=== PATIENT | female | born 1980 | race Caucasian/White ===

== ENCOUNTER 2017-03-03 21:52 | Emergency (ER) | payer MEDICAID ==
[~2017-03-03 21:52] MED LIST: COLACE100 MG PO; MOTRIN600 MG PO; NOR10T PO
[2017-03-04 01:18] VITALS: BP 118/69
== END 2017-03-04 01:18 | disposition home or self-care (01) ==
LOC: ED 21:52
DX: S93.401A Sprain of unspecified ligament of right ankle, initial encounter (principal); S96.911A Strain of unspecified muscle and tendon at ankle and foot level, right foot, initial encounter; G43.909 Migraine, unspecified, not intractable, without status migrainosus; M79.1 Myalgia; M54.30 Sciatica, unspecified side; Z90.49 Acquired absence of other specified parts of digestive tract; X50.1XXA Overexertion from prolonged static or awkward postures, initial encounter; Y93.89 Activity, other specified; Y99.8 Other external cause status; Y92.89 Other specified places as the place of occurrence of the external cause

== ENCOUNTER 2020-03-05 06:16 | Emergency (ER) | payer MEDICAID ==
[~2020-03-05] VITALS: Ht 165.1 cm; Wt 81.2 kg
[2020-03-05 06:29] VITALS: Ht 165.1 cm; Wt 81.2 kg
[2020-03-05 08:17] LABS: BASOPHIL % 0.2 % (0-2); PLATELET COUNT 272 x10^3mcL (130-400); RED CELL DISTRIBUTION WIDTH 13.1 % (11.5-14.5)
[2020-03-05 08:38] LABS: CALCIUM 8.8 mg/dL (8.5-10.1); CARBON DIOXIDE 22.6 mmol/L (21-32); CHLORIDE SERUM 103 mmol/L (98-107); CREATININE SERUM 0.8 mg/dL (0.6-1.0); GFR1 > 60 mL/min; GLUCOSE SERUM 107 mg/dL (74-106); POTASSIUM SERUM 4.5 mmol/L (3.5-5.1); SODIUM SERUM 135 mmol/L (136-145)
[2020-03-05 08:42] LABS: ALBUMIN 3.6 g/dL (3.4-5.0); ALKALINE PHOSPHATASE 67 U/L (46-116); ALT/SGPT 37 U/L (14-59); AST/SGOT 17 U/L (15-37); BILIRUBIN TOTAL 0.2 mg/dL (0.20-1.00); CHOLESTEROL 189 mg/dL (<200); PHOSPHOROUS 3.8 mg/dL (2.5-4.9); TOTAL PROTEIN, SERUM 7.3 g/dL (6.4-8.2); URIC ACID 3.9 mg/dL (2.6-6.0)
[2020-03-05 08:48] LABS: HDL CHOLESTEROL 34 mg/dL (40-60)
[2020-03-05 09:34] VITALS: BP 102/58
== END 2020-03-05 09:34 | disposition home or self-care (01) ==
LOC: ED 06:16
PROVIDERS: Emergency Medicine
DX: R55 Syncope and collapse (principal); R20.2 Paresthesia of skin; R42 Dizziness and giddiness; M79.7 Fibromyalgia; G43.909 Migraine, unspecified, not intractable, without status migrainosus

== ENCOUNTER 2020-09-19 02:35 | Emergency (ER) | payer MEDICAID ==
[~2020-09-19] VITALS: Ht 165.1 cm; Wt 77.1 kg
[2020-09-19 02:55] VITALS: Ht 165.1 cm; Wt 77.1 kg
[2020-09-19 04:05] LABS: BASOPHIL % 0.3 % (0.2-1.3); RED CELL DISTRIBUTION WIDTH 13.2 % (12.3-17.7)
[2020-09-19 04:07] LABS: PLATELET COUNT 302 x10^3mcL (179-408)
[2020-09-19 04:17] LABS: CREATININE SERUM 1.2 mg/dL (0.6-1.0); POTASSIUM SERUM 3.9 mmol/L (3.5-5.1)
[2020-09-19 04:30] LABS: ALBUMIN 3.5 g/dL (3.4-5.0); BILIRUBIN TOTAL 0.3 mg/dL (0.20-1.00); MAGNESIUM 1.8 mg/dL (1.8-2.4); TOTAL PROTEIN, SERUM 7.3 g/dL (6.4-8.2)
[2020-09-19 06:28] VITALS: BP 109/76
== END 2020-09-19 06:28 | disposition home or self-care (01) ==
LOC: ED 02:35
PROVIDERS: Student in an Organized Health Care Education/Training Program
DX: R42 Dizziness and giddiness (principal); R51.9 Headache, unspecified; M79.7 Fibromyalgia
CPT/HCPCS: 82962; 84439; J1885; J7030